=== PATIENT | male | born 1970 | race Caucasian/White ===

== ENCOUNTER 2016-09-22 11:35 | Emergency (ER) | payer SELFPAY ==
[~2016-09-22] VITALS: Ht 195.5 cm; Wt 74.8 kg
[2016-09-22] MEDS ORDERED: ZITHROMAX250 MG PO (13:18)
== END 2016-09-22 14:23 | disposition home or self-care (01) ==
LOC: ED 11:35
DX: S20.212A Contusion of left front wall of thorax, initial encounter (principal); J18.9 Pneumonia, unspecified organism; F17.200 Nicotine dependence, unspecified, uncomplicated; X50.9XXA Other and unspecified overexertion or strenuous movements or postures, initial encounter; Y93.39 Activity, other involving climbing, rappelling and jumping off; Y92.9 Unspecified place or not applicable; Y99.9 Unspecified external cause status

== ENCOUNTER 2016-10-16 20:08 | Emergency (ER) | payer MEDICAID ==
[~2016-10-16] VITALS: Ht 195.5 cm; Wt 68.0 kg
[~2016-10-16 20:08] MED LIST: ZITHROMAX250 MG PO
[2016-10-16] MEDS ORDERED: PREDNISONE10 MG PO (20:33)
[2016-10-16] MEDS ORDERED: LIDEX 0.05% CRE15 GM T (20:36)
== END 2016-10-16 22:06 | disposition home or self-care (01) ==
LOC: ED 20:08
DX: L25.5 Unspecified contact dermatitis due to plants, except food (principal); F17.200 Nicotine dependence, unspecified, uncomplicated; Z90.49 Acquired absence of other specified parts of digestive tract

== ENCOUNTER → 2016-11-18 | Outpatient (CLI) | payer MEDICAID ==
[~2016-11-18] MED LIST changes: +LIDEX 0.05% CRE15 GM T; +PREDNISONE10 MG PO
== END | disposition home or self-care (01) ==
LOC: RAD 15:01
DX: M53.3 Sacrococcygeal disorders, not elsewhere classified (principal); G89.29 Other chronic pain

== ENCOUNTER 2016-12-15 19:57 | Emergency (ER) | payer OTHER ==
[~2016-12-15] VITALS: Ht 182.8 cm; Wt 90.7 kg
[2016-12-15] MEDS ORDERED: ZANAFLEX6 M1 PO (20:51)
== END 2016-12-15 21:30 | disposition home or self-care (01) ==
LOC: ED 19:57
DX: S39.012A Strain of muscle, fascia and tendon of lower back, initial encounter (principal); F17.200 Nicotine dependence, unspecified, uncomplicated; X58.XXXA Exposure to other specified factors, initial encounter; Y93.9 Activity, unspecified; Y92.9 Unspecified place or not applicable; Y99.9 Unspecified external cause status

== ENCOUNTER 2017-03-03 15:57 | Emergency (ER) | payer OTHER ==
[~2017-03-03] VITALS: Ht 195.5 cm; Wt 74.8 kg
[~2017-03-03 15:57] MED LIST changes: +ZANAFLEX6 M1 PO
[2017-03-03] MEDS ORDERED: NAPROSYN500 MG PO (16:29)
== END 2017-03-03 16:46 | disposition home or self-care (01) ==
LOC: ED 15:57
DX: M25.511 Pain in right shoulder (principal); F17.200 Nicotine dependence, unspecified, uncomplicated; Z98.890 Other specified postprocedural states

== ENCOUNTER → 2017-04-10 | Outpatient (CLI) | payer OTHER ==
[~2017-04-10] MED LIST changes: +NAPROSYN500 MG PO
== END | disposition home or self-care (01) ==
LOC: ORTHO 02:24
DX: M89.9 Disorder of bone, unspecified (principal)

== ENCOUNTER 2017-07-28 15:21 | Emergency (ER) | payer OTHER ==
[~2017-07-28] VITALS: Ht 195.5 cm; Wt 74.8 kg
[2017-07-28] MEDS ORDERED: Motrin,Rufen800 MG PO (16:10)
[2017-07-28] MEDS ORDERED: CYCLOBENZAPRINE5 M3 PO (16:10)
[2017-07-28] MEDS ORDERED: TRAMADOL HCL50 MG PO (16:10)
== END 2017-07-28 16:46 | disposition home or self-care (01) ==
LOC: ED 15:21
DX: M25.511 Pain in right shoulder (principal); Z90.49 Acquired absence of other specified parts of digestive tract